=== PATIENT | female | born 1930 | race Caucasian/White ===

== ENCOUNTER 2019-07-21 12:14 | Emergency (ER) | payer MEDICARE, BC ==
[2019-07-21 12:56] LABS: ABSOLUTE BASOPHILS # (AUTO) 0.1 10^3/uL (0.0-0.2); ABSOLUTE EOSINOPHILS # (AUTO) 0.1 10^3/uL (0.0-0.6); ABSOLUTE LYMPHOCYTES (AUTO) 1.7 10^3/uL (0.5-4.7); ABSOLUTE MONOCYTES (AUTO) 0.7 10^3/uL (0.1-1.4); ABSOLUTE NEUT (AUTO) 6.3 10^3/uL (1.7-8.2); BASOPHILS % (AUTO) 0.7 % (0-2); EOSINOPHILS % (AUTO) 0.8 % (0-6); HEMATOCRIT 43.4 % (36.0-47.0); HEMOGLOBIN 14.8 g/dL (12.0-15.5); MEAN CORPUSCULAR HGB CONC 34.2 g/dL (32.0-36.0); MEAN CORPUSCULAR VOLUME 88 fl (80-97); MONOCYTES % (AUTO) 7.7 % (3-13); PLATELET COUNT 224 10^3/uL (150-450); RED BLOOD COUNT 4.94 10^6/uL (3.72-5.28); RED CELL DISTRIBUTION WIDTH 13.8 % (11.5-14.0); SEGMENTED NEUTROPHILS % (AUTO) 71.8 % (42-78); TOTAL CELLS COUNTED % (AUTO) 100 %; WHITE BLOOD COUNT 8.7 10^3/uL (4.0-10.5)
[2019-07-21 13:21] LABS: CREATINE KINASE MB 0.76 ng/mL (<4.55)
[2019-07-21 13:23] LABS: TROPONIN I < 0.012 ng/mL
[2019-07-21 13:35] LABS: ALBUMIN 4.2 g/dL (3.5-5.0); ALKALINE PHOSPHATASE 57 U/L (38-126); ANION GAP 15 (5-19); ASPARTATE AMINO TRANSFERASE 35 U/L (14-36); BILIRUBIN,DIRECT 0.2 mg/dL (0.0-0.4); BILIRUBIN,TOTAL 1.7 mg/dL (0.2-1.3); BLOOD UREA NITROGEN 15 mg/dL (7-20); CALCIUM 10.1 mg/dL (8.4-10.2); CARBON DIOXIDE 23 mmol/L (22-30); CHLORIDE 104 mmol/L (98-107); CREATINE KINASE 77 U/L (30-135); GLUCOSE 133 mg/dL (75-110); POTASSIUM 4.2 mmol/L (3.6-5.0)
[2019-07-21 13:51] LABS: APPEARANCE,URINE SLIGHTLY-CLOUDY; BILIRUBIN,URINE NEGATIVE (NEGATIVE); CALCIUM OXALATE CRYSTALS,URINE RARE /HPF; GLUCOSE, URINE 50 mg/dL (NEGATIVE); KETONES,URINE TRACE mg/dL (NEGATIVE); LEUKOCYTE ESTERASE,URINE NEGATIVE (NEGATIVE); NITRITE,URINE NEGATIVE (NEGATIVE); PROTEIN,URINE 100 mg/dL (NEGATIVE); URINE SPECIFIC GRAVITY 1.025; UROBILINOGEN,URINE NEGATIVE mg/dL (<2.0)
[2019-07-21 13:52] LABS: COLOR,URINE DARK YELLOW
--- NOTE | 2019-07-21 15:01 | RADIOLOGY REPORT (SQ) ---
EXAM DESCRIPTION: CT HEAD WITHOUT COMPLETED DATE/TIME: 07/21/2019 1:37 pm REASON FOR STUDY: altered mental status COMPARISON: None. TECHNIQUE: Axial images acquired through the brain without intravenous contrast. Images reviewed wi th bone, brain and subdural windows. Additional sagittal and coronal reconstructions were generated. Images stored on PACS. All CT scanners at this facility use dose modulation, iterative reconstruction, and/or weight based d osing when appropriate to reduce radiation dose to as low as reasonably achievable (ALARA). [facility]: Dose Right [facility]: CareDose [facility]: Dose Right [facility]: Teradose 4D [facility]: Handup RADIATION DOSE: Total exam DLP: 1017.17 mGy LIMITATIONS: None. FINDINGS: VENTRICLES: Prominent, commensurate with the sulci. The cisterns are patent. CEREBRUM: Chronic small vessel ischemic changes. No masses. No hemorrhage. No midline shift. No evidence for acute infarction. CEREBELLUM: No masses. No hemorrhage. No alteration of density. No evidence for acute infarction. EXTRAAXIAL SPACES: Age related involutional change. No fluid collections. No masses. ORBITS AND GLOBE: No intra- or extraconal masses. Normal contour of globe without masses. CALVARIUM: No fracture. PARANASAL SINUSES: No fluid or mucosal thickening. SOFT TISSUES: No mass or hematoma. 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 Small non-enlarged intrapar otid gland lymph node is also noted. Considerations for these findings include benign masses includi ng mixed tumor, with the possibility of underlying malignancy not entirely excluded. IMPRESSION: 1. No acute intracranial abnormality. 2. Atrophy and chronic small vessel ischemic changes. 3. 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 Small non-enlarged intraparotid gland lymph node. Considerations for these findings include benign masses including mixed tumor, wi th the possibility of underlying malignancy not entirely excluded. EVIDENCE OF ACUTE STROKE: NO. COMMENT: 1. The results of this examination were discussed with emergency department provider on at 16:47 hours. Quality ID # 436: Final reports with documentation of one or more dose reduction techniques (e.g., Au tomated exposure control, adjustment of the mA and/or kV according to patient size, use of iterative reconstruction technique) TECHNICAL DOCUMENTATION: JOB ID: [id number] [employer]- All Rights Reserved Reading location - IP/workstation name: [email or web address]
--- NOTE | 2019-07-21 15:30 | ER Document Report ---
ED Dizziness/Weakness - General Chief Complaint: Syncope Stated Complaint: SYNCOPE Time Seen by Provider: 07/21/19 12:44 Mode of Arrival: Medic Information source: Patient, Relative TRAVEL OUTSIDE OF THE U[place]. IN LAST 30 DAYS: No - HPI Notes: Patient is brought in by paramedics after a syncopal episode at home. Patient has dementia and is not a good historian. Patient's son is at bedside and gives the history. He states that the patient was sitting next to him about an hour and a half after breakfast on the porch. He states he looked over and the patient's eyes were open but she was not responding. He states this lasted about 5 to 10 minutes. He states since then the patient has been essentially back to baseline. He states he did notice that the patient was somewhat sweaty right after the episode. There is been no recent illnesses. No recent nausea vomiting or diarrhea that is known. No recent known fevers cough or congestion. No known recent trauma. Patient does not take any type of blood pressure medication. Patient has no significant history of previous syncopal episodes. Symptoms were constant for approximately 10 minutes. Nothing made it better or worse. There is no no radiation symptoms. Symptoms consisted of being unresponsive and staring. Patient is unable to characterize the symptoms. - Related Data Allergies/Adverse Reactions: No Known Allergies Allergy (Verified 07/21/19 13:23) Past Medical History - General Information source: Relative - Social History Smoking Status: Never Smoker Chew tobacco use (# tins/day): No Frequency of alcohol use: None Drug Abuse: None Lives with: Family Family History: Reviewed & Not Pertinent Patient has suicidal ideation: No Patient has homicidal ideation: No - Past Medical History Cardiac Medical History: Denies: Hx Heart Attack, Hx Hypertension Pulmonary Medical History: Denies: Hx Asthma Neurological Medical History: Denies: Hx Cerebrovascular Accident, Hx Seizures GI Medical History: Denies: Hx Hepatitis, Hx Hiatal Hernia, Hx Ulcer Infectious Medical History: Denies: Hx Hepatitis Past Surgical History: 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 Denies: Hx Hysterectomy, Hx Open Heart Surgery, Hx Pacemaker Review of Systems - Review of Systems -: Yes ROS unobtainable due to patient's medical condition - Review of symptoms are not obtainable due to patient's dementia Physical Exam - Vital signs Vitals: Temp Pulse Resp BP Pulse Ox 97.7 F 78 15 113/70 94 07/21/19 12:14 07/21/19 12:14 07/21/19 12:14 07/21/19 12:14 07/21/19 12:14 Interpretation: Normal - General General appearance: Appears well, Alert - HEENT Head: Normocephalic, Atraumatic Eyes: Normal Pupils: PERRL - Respiratory Respiratory status: No respiratory distress Chest status: Nontender Breath sounds: Normal Chest palpation: Normal - Cardiovascular Rhythm: Regular Heart sounds: Normal auscultation Murmur: No - Abdominal Inspection: Normal Distension: No distension Bowel sounds: Normal Tenderness: Nontender Organomegaly: No organomegaly - Back Back: Normal, Nontender - Extremities General upper extremity: Normal inspection, Nontender, Normal color, Normal ROM, Normal temperature General lower extremity: Normal inspection, Nontender, Normal color, Normal ROM, Normal temperature, Normal weight bearing. 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 No: Pronator drift Sensory: Normal - Psychological Associated symptoms: Normal affect, Normal mood - Skin Skin Temperature: Warm Skin Moisture: Dry Skin Color: Normal Course - Re-evaluation Re-evalutation: 07/21/19 15:27 Patient presents with a syncopal episode this morning. Work appears unremarkable. She did not have a urinary tract infection. She has no evidence of arrhythmia. Orthostatic vital signs are normal. Head CT is unremarkable for anything which would cause syncope. 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 I did inform family that if never wanted evaluated further they should follow-up with ENT. Patient is currently smiling and pleasant has unremarkable exam with stable vital signs. I do not believe the patient would benefit from inpatient admission and have referred the family for further outpatient work-up. - Vital Signs Vital signs: Temp Pulse Resp BP Pulse Ox 97.7 F 81 14 118/67 95 07/21/19 12:14 07/21/19 15:13 07/21/19 14:00 07/21/19 15:13 07/21/19 14:00 - Laboratory Result Diagrams: 07/21/19 12:33 07/21/19 12:33 Laboratory results interpreted by me: 07/21/19 07/21/19 12:33 13:10 Glucose 133 H Total Bilirubin 1.7 H Urine Protein 100 H Urine Glucose (UA) 50 H Urine Ketones TRACE H Urine Blood LARGE H - Diagnostic Test Radiology reviewed: Image reviewed, Reports reviewed - EKG Interpretation by Me EKG shows normal: Sinus rhythm Rate: Normal - 79 Rhythm: NSR Reddick/QRS: LAHB/LAFB Discharge - Discharge Clinical Impression: Syncope Qualifiers: Syncope type: unspecified Qualified Code(s): R55 - Syncope and collapse Condition: Stable Disposition: HOME, SELF-CARE Instructions: Syncopal Episode ([facility]) Additional Instructions: Please call your family doctor as soon as possible to arrange follow-up
[2019-07-21 15:42] VITALS: BP 127/113
--- NOTE | 2019-07-23 00:04 | EKG REPORT ---
SEVERITY:- ABNORMAL ECG - SINUS RHYTHM LEFT ANTERIOR FASCICULAR BLOCK LEFT VENTRICULAR HYPERTROPHY ANTERIOR Q WAVES, POSSIBLY DUE TO LVH : Confirmed by: Josesito Tuttle 23-Jul-2019 00:03:11
== END 2019-07-21 16:00 | disposition home or self-care (01) ==
LOC: ER 12:14
DX: R55 Syncope and collapse (principal); F03.90 Unspecified dementia, unspecified severity, without behavioral disturbance, psychotic disturbance, mood disturbance, and anxiety
CPT/HCPCS: 36415; 70450; 80053; 81001; 82550; 82553; 84484; 85025; 93005; 93010; 99284

== ENCOUNTER → 2019-07-27 | Outpatient (CLI) | payer MEDICARE, BC ==
--- NOTE | 2019-07-27 14:19 | RADIOLOGY REPORT (SQ) ---
EXAM DESCRIPTION: CAROTID DOPPLER COMPLETED DATE/TIME: 07/27/2019 1:50 pm REASON FOR STUDY: SYNCOPE R55 SYNCOPE AND COLLAPSE COMPARISON: None. TECHNIQUE: Grayscale ultrasound, Doppler velocity and spectra, and color Doppler images acquired of the extra-cranial carotid and vertebral arteries. Images stored on PACS. LIMITATIONS: None. FINDINGS: RIGHT CAROTID CCA Velocities: Normal waveform and velocities without high-grade stenosis. Grayscale evaluation wit hout significant luminal narrowing. ICA Velocities Peak systolic 70 cm/s. End diastolic 20 cm/s. Proximal ICA/CCA peak systolic ratio 1.3. Normal spectral waveform. Grayscale evaluation with scattered heterogeneous plaque and less than 50% luminal narrowing. LEFT CAROTID CCA Velocities: Normal waveform and velocity without high-grade stenosis. Grayscale evaluation witho ut significant luminal narrowing. ICA Velocities Peak systolic 46 cm/s. End diastolic 12 cm/s. Proximal ICA/CCA peak systolic ratio 1.0. Normal waveform and velocity without high-grade stenosis. Grayscale evaluation with minimal eccentri c plaque causing less than 50% luminal narrowing. VERTEBRAL ARTERIES: Antegrade flow. Normal waveforms. SUBCLAVIAN ARTERIES: Not imaged. OTHER: No other significant finding. IMPRESSION: 1. No hemodynamically significant ICA stenosis. COMMENT: Quality ID #195: Velocity criteria are extrapolated from the diameter data as defined by t he Society of Radiologists in Ultrasound Consensus Conference. Radiology 2003: 229; 340-346. TECHNICAL DOCUMENTATION: JOB ID: [id number] [employer]- All Rights Reserved Reading location - IP/workstation name: [email or web address]
== END ==
LOC: SP 12:48
PROVIDERS: ATTEND Family Medicine Geriatric Medicine
DX: R55 Syncope and collapse (principal)
CPT/HCPCS: 93880

== ENCOUNTER 2019-09-26 18:24 | Emergency (ER) | payer MEDICARE, BC ==
[2019-09-26] MEDS ORDERED: NORMAL SALINE 1000 ML 1,000 ML IV ONE (19:03)
[2019-09-26] MEDS ORDERED: ONDANSETRON HCL INJ/PF 4 MG/2 ML SDV IV ONE (19:03)
--- NOTE | 2019-09-26 19:05 | ER Document Report ---
ED Medical Screen (RME) - General Chief Complaint: Abdominal Pain Stated Complaint: FEVER/ABDOMINAL PAIN/NAUSEA Time Seen by Provider: 09/26/19 18:59 Primary Care Provider: RENATO LANDIS MD [Primary Care Provider] - Follow up as needed TRAVEL OUTSIDE OF THE U.[place]. IN LAST 30 DAYS: No - HPI Notes: 09/26/19 19:04 Patient is an 89-year-old female with a history of diabetes and dementia who presents with son complaining of lower abdominal pain that began a couple hours ago. Son states that she did feel warm to the touch. She has been dry heaving. Son states that she will have incontinence of stool which is normal for her. No chest pain or shortness of breath. I have treated and performed a rapid initial assessment of this patient. A comprehensive ED assessment and evaluation of the patient, analysis of test results and completion of medical decision making process will be conducted by additional ED providers. PHYSICAL EXAMINATION: GENERAL: Well-appearing, well-nourished and in no acute distress. Abdomen: Limited exam in triage, abdomen is generally soft with mild tenderness to the lower abdomen. Lungs: Grossly CTAB. 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 Denies: Hx Hysterectomy, Hx Open Heart Surgery, Hx Pacemaker Physical Exam - Vital signs Vitals: Temp Pulse Resp BP Pulse Ox 97.8 F 76 20 172/80 H 94 09/26/19 18:41 09/26/19 18:41 09/26/19 18:41 09/26/19 18:41 09/26/19 18:41 Course - Vital Signs Vital signs: Temp Pulse Resp BP Pulse Ox 97.8 F 76 20 172/80 H 94 09/26/19 18:41 09/26/19 18:41 09/26/19 18:41 09/26/19 18:41 09/26/19 18:41 Doctor's Discharge - Discharge Referrals: RENATO LANDIS MD [Primary Care Provider] - Follow up as needed
[2019-09-26 19:47] LABS: ABSOLUTE LYMPHOCYTES (AUTO) 1.1 10^3/uL (0.5-4.7); MEAN CORPUSCULAR VOLUME 87 fl (80-97); TOTAL CELLS COUNTED % (AUTO) 100 %
[2019-09-26 20:04] LABS: ABSOLUTE MONOCYTES (AUTO) 0.6 10^3/uL (0.1-1.4); ABSOLUTE NEUT (AUTO) 9.4 10^3/uL (1.7-8.2); BASOPHILS % (AUTO) 0.3 % (0-2); EOSINOPHILS % (AUTO) 0.4 % (0-6); HEMATOCRIT 44.2 % (36.0-47.0); HEMOGLOBIN 14.9 g/dL (12.0-15.5); LYMPHOCYTES % (AUTO) 10.1 % (13-45); MEAN CORPUSCULAR HEMOGLOBIN 29.4 pg (27.0-33.4); MEAN CORPUSCULAR HGB CONC 33.6 g/dL (32.0-36.0); MONOCYTES % (AUTO) 5.6 % (3-13); PLATELET COUNT 217 10^3/uL (150-450); RED BLOOD COUNT 5.06 10^6/uL (3.72-5.28); RED CELL DISTRIBUTION WIDTH 13.4 % (11.5-14.0); SEGMENTED NEUTROPHILS % (AUTO) 83.6 % (42-78); WHITE BLOOD COUNT 11.2 10^3/uL (4.0-10.5)
[2019-09-26 20:08] LABS: ALBUMIN 4.4 g/dL (3.5-5.0); ALKALINE PHOSPHATASE 71 U/L (38-126); ANION GAP 11 (5-19); ASPARTATE AMINO TRANSFERASE 28 U/L (14-36); BILIRUBIN,DIRECT 0.1 mg/dL (0.0-0.4); BILIRUBIN,TOTAL 1.5 mg/dL (0.2-1.3); BLOOD UREA NITROGEN 15 mg/dL (7-20); CALCIUM 9.9 mg/dL (8.4-10.2); CARBON DIOXIDE 27 mmol/L (22-30); CHLORIDE 99 mmol/L (98-107); GLUCOSE 186 mg/dL (75-110); TOTAL PROTEIN 7.4 g/dL (6.3-8.2)
--- NOTE | 2019-09-26 20:33 | ER Document Report ---
ED GI/ - General Chief Complaint: Abdominal Pain Stated Complaint: FEVER/ABDOMINAL PAIN/NAUSEA Time Seen by Provider: 09/26/19 18:59 Primary Care Provider: RENATO LANDIS MD [Primary Care Provider] - Follow up as needed TINO COOK MD [NO LOCAL MD] - Follow up as needed Mode of Arrival: Wheelchair Information source: Patient, Relative Notes: 89-year-old female presented to ED for complaint of lower abdominal pain. Son states at home she was complaining of right lower quadrant but now she is complained of left lower quadrant pain. She does have tenderness to palpation to the left lower quadrant. Son states that she was having nausea vomiting and dry heaves at home. He states that she is also very incontinent and has a history of dementia and diabetes. She does not know her history and is not really able to answer any questions appropriately. Patient is alert for and as oriented as she normally is according to her son. TRAVEL OUTSIDE OF THE [place] IN LAST 30 DAYS: No - HPI Patient complains to provider of: Abdominal pain, Vomiting Onset: This evening Timing/Duration: Intermittent Quality of pain: Cramping, Sharp Severity at maximum: Moderate Severity in ED: Moderate Pain Level: 3 Location: LLQ Vaginal bleeding (Compared to normal period): None Menstrual period history: Post-menopausal Associated symptoms: Nausea, Vomiting Exacerbated by: Movement Relieved by: Denies Similar symptoms previously: No Recently seen / treated by doctor: No - Related Data Allergies/Adverse Reactions: No Known Allergies Allergy (Verified 09/26/19 18:59) Home Medications: metformen, Past Medical History - General Information source: Patient, Relative - Social History Smoking Status: Never Smoker Frequency of alcohol use: None Drug Abuse: None Lives with: Alone - Family is always present Family History: Reviewed & Not Pertinent Patient has suicidal ideation: No Patient has homicidal ideation: No - Past Medical History Cardiac Medical History: Reports: None Pulmonary Medical History: Reports: None EENT Medical History: Reports: None Neurological Medical History: Reports: None Endocrine Medical History: Reports: Hx Diabetes Mellitus Type 2 Renal/ Medical History: Reports: None Malignancy Medical History: Reports: None GI Medical History: Reports: None Musculoskeletal Medical History: Reports None Skin Medical History: Reports None Psychiatric Medical History: Reports: None Traumatic Medical History: Reports: None Infectious Medical History: Reports: None Past Surgical History: 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 - Immunizations Immunizations up to date: Yes Review of Systems - Review of Systems Constitutional: No symptoms reported EENT: No symptoms reported Cardiovascular: No symptoms reported Respiratory: No symptoms reported Gastrointestinal: Abdominal pain, Nausea, Vomiting Genitourinary: No symptoms reported Female Genitourinary: No symptoms reported Musculoskeletal: No symptoms reported Skin: No symptoms reported Hematologic/Lymphatic: No symptoms reported Neurological/Psychological: No symptoms reported -: Yes All other systems reviewed and negative Physical Exam - Vital signs Vitals: Temp Pulse Resp BP Pulse Ox 97.8 F 76 20 172/80 H 94 09/26/19 18:41 09/26/19 18:41 09/26/19 18:41 09/26/19 18:41 09/26/19 18:41 Interpretation: Normal - General General appearance: Appears well, Alert - HEENT Head: Normocephalic, Atraumatic Eyes: Normal Pupils: PERRL - Respiratory Respiratory status: No respiratory distress Chest status: Nontender Breath sounds: Normal Chest palpation: Normal - Cardiovascular Rhythm: Regular Heart sounds: Normal auscultation Murmur: No - Abdominal Inspection: Normal Distension: No distension Bowel sounds: Normal Tenderness: Tender - Left lower quadrant Organomegaly: No organomegaly - Back Back: Normal, Nontender - Extremities General upper extremity: Normal inspection, Nontender, Normal color, Normal ROM, Normal temperature General lower extremity: Normal inspection, Nontender, Normal color, Normal ROM, Normal temperature, Normal weight bearing. No: Shane's sign - Neurological Neuro grossly intact: Yes Cognition: Normal Orientation: AAOx4 Bhumika Coma Scale Eye Opening: Spontaneous [place] Coma Scale Verbal: Oriented [place] Coma Scale Motor: Obeys Commands Bhumika Coma Scale Total: 15 Speech: Normal Motor strength normal: LUE, RUE, LLE, RLE Sensory: Normal - Psychological Associated symptoms: Normal affect, Normal mood - Skin Skin Temperature: Warm Skin Moisture: Dry Skin Color: Normal Course - Re-evaluation Re-evalutation: 09/26/19 23:[address] results discussed with son. Patient is dementia. Patient was treated with Flomax and given a prescription for Flomax and sent home with a dispense pack of Zofran and [place]. Son stated that 1 of the siblings stays with mother at all times due to her dementia. He states they will take her to see a urologist at either [place] or [place] probably [place] tomorrow due to her large kidney stone. - Vital Signs Vital signs: Temp Pulse Resp BP Pulse Ox 98.9 F 78 23 H 182/99 H 96 09/26/19 22:51 09/26/19 22:51 09/26/19 22:51 09/26/19 22:51 09/26/19 22:51 - Laboratory Result Diagrams: 09/26/19 19:30 09/26/19 19:30 Laboratory results interpreted by me: 09/26/19 09/26/19 09/26/19 19:30 19:30 21:03 WBC 11.2 H Lymph % (Auto) 10.1 L Absolute Neuts (auto) 9.4 H Seg Neutrophils % 83.6 H Glucose 186 H Total Bilirubin 1.5 H Urine Protein 100 H Urine Glucose (UA) 150 H Urine Ketones 20 H Urine Blood LARGE H Ur Leukocyte Esterase TRACE H - Diagnostic Test Radiology reviewed: Image reviewed, Reports reviewed Discharge - Discharge Clinical Impression: Left ureteral calculus, Hydronephrosis, left Condition: Stable Disposition: HOME, SELF-CARE Additional Instructions: KIDNEY STONE: You are passing or have passed a kidney stone. These stones are usually due to increased calcium or uric acid concentrations in your urine. Stones within the kidney itself are not painful. The pain occurs as the stone leaves the kidney to pass down the long tube, called the ureter, leading to the bl adder. If the stone is small, it will usually pass by itself. Most patients can pass the stone at home. You will usually receive medications for pain, nausea or vomiting, and sometimes a medication to assist in passing the kidney stone. However, if the pain is very severe or if vomiting prevents you from taking oral pain medications, you may need to return for further treatment. Drink three or four quarts of fluids per day. You will be given pain medication (if needed) and urine strainers. Strain all your urine to see if the stone passes. If your doctor has asked you to bring the stone in for analysis, return with the stone once it has passed. Return if pain or vomiting become severe, if you develop a high fever, if you are unable to pass your urine, or if other unusual symptoms occur. ANTINAUSEA MEDICATION: You have been given a medication to suppress nausea and vomiting. This type of medication can be given as a shot, pill, or suppository. It will usually last for many hours. Pills and shots usually last six to eight hours, suppositories last about 12 hours. For the typical illness, only one or two doses of the medication may be necessary. Mild lightheadedness may occur. This type of medicine can cause drowsiness. Do not drive or operate dangerous machinery while under its influence. Do not mix with alcohol. See your doctor at once if you have muscle spasms or tightness, or uncontrollable motions (particularly of the neck, mouth, or jaw). Persistent vomiting or severe lightheadedness should also be evaluated by the physician. ORAL NARCOTIC MEDICATION: You have been given a norco dispense pack for pain control. This medi cation is a narcotic. It's best taken with food, as nausea can result if taken on an empty stomach. Don't operate machinery or drive within six hours of taking this medication. Do not combine this medicine with alcohol, or with any medication which can cause sedation (such as cold tablets or sleeping pills) unless you get permission from the physician. Narcotics tend to cause constipation. If possible, drink plenty of fluids and eat a diet high in fiber and fruits. Please be aware that prescription narcotics also have the potential for abuse. People become addicted to these medications because of the general sense of wellbeing that they induce. This feeling along with a significant reduction in tension, anxiety, and aggression provides a stimulating seductive quality to these drugs. Once your pain is under control, we encourage you to discard your unused narcotics. FLOMAX (tamsulosin): Flomax is a medicine that shrinks the prostate gland. It helps relieve symptoms of benign prostatic hypertrophy, such as frequent urination, weak stream, and inadequate emptying. It has been shown to dilate the ureter (tube leading from the kidney to the bladder) and help in passing kidney stones Flomax usually causes no side effects. You may notice slight tiredness and dizziness for a few days. Some patients develop nasal congestion. Rarely, impotence can occur. If the symptoms are bothersome and don't improve with continued use, call your doctor. Contact your doctor or return if you have fainting spells, severe weakness or dizziness, shortness of breath, or rash. FOLLOW-UP CARE: If you have been referred to a physician for follow-up care, call the physicians office for an appointment as you were instructed or within the next two days. If you experience worsening or a significant change in your symptoms, notify the physician immediately or return to the Emergency Department at any time for re-evaluation. Prescriptions: Tamsulosin HCl [Flomax 0.4 mg Cap.sr] 0.4 mg PO DAILY #7 cap.sr.24h Forms: Elevated Blood Pressure Referrals: RENATO LANDIS MD [Primary Care Provider] - Follow up as needed TINO COOK MD [NO LOCAL MD] - Follow up as needed
[2019-09-26 21:25] LABS: APPEARANCE,URINE SLIGHTLY-CLOUDY; BILIRUBIN,URINE NEGATIVE (NEGATIVE); COLOR,URINE YELLOW; GLUCOSE, URINE 150 mg/dL (NEGATIVE); KETONES,URINE 20 mg/dL (NEGATIVE); LEUKOCYTE ESTERASE,URINE TRACE (NEGATIVE); NITRITE,URINE NEGATIVE (NEGATIVE); PROTEIN,URINE 100 mg/dL (NEGATIVE); URINE SPECIFIC GRAVITY 1.013; UROBILINOGEN,URINE NEGATIVE mg/dL (<2.0)
--- NOTE | 2019-09-26 22:07 | RADIOLOGY REPORT (SQ) ---
EXAM DESCRIPTION: CT ABDOMEN PELVIS WITH IV CONTRAST COMPLETED DATE/TME: 09/26/2019 20:27 CLINICAL HISTORY: 89 years, Female, left lower quad abdominal pain COMPARISON: None. TECHNIQUE: 383 Images stored on PACS. All CT scanners at this facility use dose modulation, iterative reconstruction, and/or weight based dosing when appropriate to reduce radiation dose to as low as reasonably achievable (ALARA). [facility]: Dose Right [facility]: CareDose [facility]: Dose Right [facility]: Teradose 4D [facility]: Smart Fonality LIMITATIONS: None. FINDINGS: Limited evaluation of the lung bases is unremarkable. Small hiatal hernia. Osseous structures are grossly intact. Calcified uterine fibroids. Probable fatty infiltrative change to the liver. 12 mm hypodensity near the dome of the liver likely reflect small hemangioma. Probable cyst in the superior aspect of the spleen. The adrenal glands, pancreas, are unremarkable. Simple appearing right renal cyst. Moderate left hydroureteronephrosis with left perinephric inflammatory fat stranding and edema secondary to a 1.3 cm proximal left ureteral calculus. No gross evidence for bowel obstruction. No free air or free fluid. Occasional sigmoid diverticuli without CT evidence for diverticulitis. Appendix not well seen. No pericecal inflammation. IMPRESSION: Moderate left hydroureteronephrosis with surrounding inflammatory changes secondary to a 1.3 cm proximal left ureteral calculus. Other incidental findings as above TECHNICAL DOCUMENTATION: Quality ID # 436: Final reports with documentation of one or more dose reduction techniques (e.g., Automated exposure control, adjustment of the mA and/or kV according to patient size, use of iterative reconstruction technique) copyright 2011 [employer]- All Rights Reserved
[2019-09-26] MEDS ORDERED: HYDROCODONE/ACETAMINOPHEN 5-325 MG (6 TAB/ER DISP) PO PRN (22:33)
[2019-09-26] MEDS ORDERED: ONDANSETRON ODT 4 MG TAB (6 TAB/ER DISP) PO PRN (22:34)
[2019-09-26] MEDS ORDERED: TAMSULOSIN HCL 0.4 MG CAP.SR.24H PO ONE (22:35)
[2019-09-26 22:52] VITALS: BP 182/99
== END 2019-09-26 22:52 | disposition home or self-care (01) ==
LOC: ER 18:24
DX: N13.2 Hydronephrosis with renal and ureteral calculous obstruction (principal); R50.9 Fever, unspecified; R10.31 Right lower quadrant pain; R10.32 Left lower quadrant pain; R11.2 Nausea with vomiting, unspecified; F03.90 Unspecified dementia, unspecified severity, without behavioral disturbance, psychotic disturbance, mood disturbance, and anxiety; E11.9 Type 2 diabetes mellitus without complications
CPT/HCPCS: 99284; 96361; 96374; 36415; 87086; 83690; 85025; 80053; 81001; 74177; A9270 ×3; J2405; J7030

== ENCOUNTER 2020-10-04 10:24 | Emergency (ER) | payer MEDICARE, BC ==
[2020-10-04 11:46] LABS: ABSOLUTE EOSINOPHILS # (AUTO) 0.1 10^3/uL (0.0-0.6); ABSOLUTE LYMPHOCYTES (AUTO) 1.3 10^3/uL (0.5-4.7); ABSOLUTE MONOCYTES (AUTO) 0.7 10^3/uL (0.1-1.4); ABSOLUTE NEUT (AUTO) 6.3 10^3/uL (1.7-8.2); BASOPHILS % (AUTO) 0.4 % (0-2); HEMATOCRIT 46.9 % (36.0-47.0); HEMOGLOBIN 15.7 g/dL (12.0-15.5); LYMPHOCYTES % (AUTO) 15.7 % (13-45); MEAN CORPUSCULAR HEMOGLOBIN 29.1 pg (27.0-33.4); MEAN CORPUSCULAR HGB CONC 33.5 g/dL (32.0-36.0); MEAN CORPUSCULAR VOLUME 87 fl (80-97); MONOCYTES % (AUTO) 7.9 % (3-13); PLATELET COUNT 161 10^3/uL (150-450); RED BLOOD COUNT 5.39 10^6/uL (3.72-5.28); RED CELL DISTRIBUTION WIDTH 13.6 % (11.5-14.0); TOTAL CELLS COUNTED % (AUTO) 100 %; WHITE BLOOD COUNT 8.4 10^3/uL (4.0-10.5)
[2020-10-04 12:03] LABS: ALBUMIN 4.4 g/dL (3.5-5.0); ALKALINE PHOSPHATASE 85 U/L (38-126); ANION GAP 7 (5-19); ASPARTATE AMINO TRANSFERASE 31 U/L (14-36); BILIRUBIN,DIRECT 0.1 mg/dL (0.0-0.4); BILIRUBIN,TOTAL 2.7 mg/dL (0.2-1.3); BLOOD UREA NITROGEN 11 mg/dL (7-20); CARBON DIOXIDE 29 mmol/L (22-30); CHLORIDE 102 mmol/L (98-107); CREATINE KINASE 145 U/L (30-135); GLUCOSE 143 mg/dL (75-110); POTASSIUM 4.5 mmol/L (3.6-5.0); TOTAL PROTEIN 7.4 g/dL (6.3-8.2)
--- NOTE | 2020-10-04 12:09 | RADIOLOGY REPORT (SQ) ---
EXAM DESCRIPTION: CT HEAD WITHOUT IMAGES COMPLETED DATE/TIME: 10/04/2020 11:59 am REASON FOR STUDY: ams COMPARISON: 07/21/2019 TECHNIQUE: Axial images acquired through the brain without intravenous contrast. Images reviewed wi th bone, brain and subdural windows. Additional sagittal and coronal reconstructions were generated. Images stored on PACS. All CT scanners at this facility use dose modulation, iterative reconstruction, and/or weight based d osing when appropriate to reduce radiation dose to as low as reasonably achievable (ALARA). [facility]: Dose Right [facility]: CareDose [facility]: Dose Right [facility]: Teradose 4D [facility]: Smart Traity RADIATION DOSE: CT Rad equipment meets quality standard of care and radiation dose reduction techniq ues were employed. CTDIvol: 53.2 mGy. DLP: 991 mGy-cm.mGy. LIMITATIONS: None. FINDINGS: VENTRICLES: Prominent. CEREBRUM: No masses. No hemorrhage. No midline shift. Areas of low density in the white matter mos t likely due to chronic micro-vascular ischemic change. No evidence for acute infarction. CEREBELLUM: No masses. No hemorrhage. No alteration of density. No evidence for acute infarction. EXTRAAXIAL SPACES: Age-related involutional change. No fluid collections. No masses. ORBITS AND GLOBE: No intra- or extraconal masses. Normal contour of globe without masses. CALVARIUM: No fracture. PARANASAL SINUSES: No fluid or mucosal thickening. SOFT TISSUES: No mass or hematoma. OTHER: No other significant finding. IMPRESSION: CHRONIC CHANGES OF ATROPHY AND MICROVASCULAR ISCHEMIA. NO ACUTE PROCESS. EVIDENCE OF ACUTE STROKE: NO. TECHNICAL DOCUMENTATION: JOB ID: [id number] Quality ID # [id number]: Final reports with documentation of one or more dose reduction techniques (e.g., Au tomated exposure control, adjustment of the mA and/or kV according to patient size, use of iterative reconstruction technique) 2010 [employer]: [employer]- All Rights Reserved Reading location - IP/workstation name: [email or web address]
--- NOTE | 2020-10-04 12:17 | RADIOLOGY REPORT (SQ) ---
EXAM DESCRIPTION: CT ABD/PELVIS NO ORAL OR IV IMAGES COMPLETED DATE/TIME: 10/04/2020 11:59 am REASON FOR STUDY: pain COMPARISON: 09/26/2019 TECHNIQUE: CT scan of the abdomen and pelvis performed without intravenous or oral contrast. Images reviewed with lung, soft tissue, and bone windows. Reconstructed coronal and sagittal MPR images revi ewed. All images stored on PACS. All CT scanners at this facility use dose modulation, iterative reconstruction, and/or weight based d osing when appropriate to reduce radiation dose to as low as reasonably achievable (ALARA). [facility]: Dose Right [facility]: CareDose [facility]: Dose Right [facility]: Teradose 4D [facility]: Smart eBrevia RADIATION DOSE: CT Rad equipment meets quality standard of care and radiation dose reduction techniq ues were employed. CTDIvol: 9.8 mGy. DLP: 544 mGy-cm.mGy. LIMITATIONS: None. FINDINGS: LOWER CHEST: Dependent basilar atelectasis. Small hiatal hernia. NON-CONTRASTED LIVER, SPLEEN, ADRENALS: Evaluation limited by lack of IV contrast. No identified sign ificant masses. PANCREAS: No masses. No peripancreatic inflammatory changes. GALLBLADDER: Surgically absent. RIGHT KIDNEY AND URETER: Small cortical cysts. No suspicious findings. 4.7 mm stone in the right r enal pelvis. This axillae lies in the main lower pole infundibulum. No hydronephrosis. No uretera l dilatation. This stone is new from prior study. LEFT KIDNEY AND URETER: No suspicious masses. Assessment limited by lack of IV contrast. No signifi cant calcifications. No hydronephrosis or hydroureter. AORTA AND RETROPERITONEUM: No aneurysm. No retroperitoneal masses or adenopathy. BOWEL AND PERITONEAL CAVITY: No obvious masses or inflammatory changes. No free fluid. APPENDIX: Normal. PELVIS, BLADDER, AND ABDOMINAL WALL:Bladder distention. No bladder stones. BONES: Degenerative changes in the lumbar spine with grade 1 anterolisthesis of L4 on L5. Disc space narrowing at L5-S1. OTHER: No other significant finding. IMPRESSION: 1. 4.7 mm stone in the main infundibulum of the lower pole. This is new from prior misael dy This is nonobstructing at this time. 2. Bladder distention. 3. Dependent basilar atelectasis and pleural thickening. Right greater than left. Small hiatal her gloria. COMMENT: Quality ID # [id number]: Final reports with documentation of one or more dose reduction techniques (e.g., Automated exposure control, adjustment of the mA and/or kV according to patient size, use of iterative reconstruction technique) TECHNICAL DOCUMENTATION: JOB ID: [id number] 2010 [employer]- All Rights Reserved Reading location - IP/workstation name: [email or web address]
--- NOTE | 2020-10-04 12:43 | EKG REPORT ---
SEVERITY:- ABNORMAL ECG - SINUS RHYTHM LEFT ANTERIOR FASCICULAR BLOCK PROBABLE LVH WITH SECONDARY REPOL ABNRM CONSIDER OLD ANTEROSEPTAL AR. : Confirmed by: Eliseo Lucas MD 04-Oct-2020 12:43:00
[2020-10-04 12:56] LABS: APPEARANCE,URINE CLEAR; BILIRUBIN,URINE NEGATIVE (NEGATIVE); COLOR,URINE YELLOW; GLUCOSE, URINE NEGATIVE (NEGATIVE); KETONES,URINE NEGATIVE (NEGATIVE); LEUKOCYTE ESTERASE,URINE TRACE (NEGATIVE); NITRITE,URINE NEGATIVE (NEGATIVE); PROTEIN,URINE NEGATIVE (NEGATIVE); URINE SPECIFIC GRAVITY 1.013; UROBILINOGEN,URINE NEGATIVE mg/dL (<2.0)
--- NOTE | 2020-10-04 13:30 | ER Document Report ---
ED Dizziness/Weakness - General Chief Complaint: Altered Mental Status Stated Complaint: GENERALIZED WEAKNESS Time Seen by Provider: 10/04/20 10:47 Primary Care Provider: JOHNATHAN LEDESMA NP [Primary Care Provider] - Follow up as needed Information source: Relative - Daughter TRAVEL OUTSIDE OF THE [place] IN LAST 30 DAYS: No - HPI Notes: Patient has a history of dementia and is brought in by family for altered mental status. They state the patient has been having more trouble sleeping the last couple of days and has been hallucinating. No known history of fevers. No cough cold or congestion. No vomiting or diarrhea. No known falls. Patient did have a near syncopal episode yesterday after urinating as the daughter was trying to help her walk back to the kitchen. According to the daughter the patient right leg gave way but the patient did not fall to the floor and there did not appear to be loss of consciousness. - Related Data Allergies/Adverse Reactions: No Known Allergies Allergy (Verified 09/26/19 18:59) Home Medications: Aspirin, Januvia, Quetiapine, Simvastatin, Lorazepa Past Medical History - General Information source: Patient - Social History Smoking Status: Never Smoker Frequency of alcohol use: None Drug Abuse: None Family History: Reviewed & Not Pertinent - Past Medical History Cardiac Medical History: Reports: Hx Hypercholesterolemia Denies: Hx Heart Attack, Hx Hypertension Pulmonary Medical History: Denies: Hx Asthma Neurological Medical History: Denies: Hx Cerebrovascular Accident, Hx Seizures Endocrine Medical History: Reports: Hx Diabetes Mellitus Type 2 GI Medical History: Denies: Hx Hepatitis, Hx Hiatal Hernia, Hx Ulcer Musculoskeletal Medical History: Reports Hx Arthritis - OA Infectious Medical History: Denies: Hx Hepatitis Past Surgical History: 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 Denies: Hx Hysterectomy, Hx Open Heart Surgery, Hx Pacemaker - Immunizations Immunizations up to date: Yes Review of Systems - Review of Systems -: Yes ROS unobtainable due to patient's medical condition - Cannot obtain review of symptoms due to dementia Physical Exam - Vital signs Vitals: BP Pulse Ox 159/86 H 96 10/04/20 10:30 10/04/20 10:30 Interpretation: Hypertensive - General General appearance: Appears well, Alert In distress: None - HEENT Head: Normocephalic, Atraumatic Eyes: Normal Pupils: PERRL - Respiratory Respiratory status: No respiratory distress Chest status: Nontender Breath sounds: Normal Chest palpation: Normal - Cardiovascular Rhythm: Regular Heart sounds: Normal auscultation Murmur: No - Abdominal Inspection: Normal Distension: No distension Bowel sounds: Normal Tenderness: Nontender Organomegaly: No organomegaly - Back Back: Normal, Nontender - Extremities General upper extremity: Normal inspection, Nontender, Normal color, Normal temperature General lower extremity: Normal inspection, Nontender, Normal color, Normal temperature. No: Shane's sign - Neurological Cognition: Confused Orientation: Disoriented to place, Disoriented to time [place] Coma Scale Eye Opening: Spontaneous [place] Coma Scale Verbal: Confused [place] Coma Scale Motor: Obeys Commands [place] Coma Scale Total: 14 - Psychological Associated symptoms: Flat affect, Psychomotor depression - Skin Skin Temperature: Warm Skin Moisture: Dry Skin Color: Normal Course - Re-evaluation Re-evalutation: 10/04/20 13:31 Patient is brought in by family for altered mental status. This altered mental status consist of having trouble sleeping and hallucinating. Patient does have a history of dementia. I can find no cause for an acutely altered mental status. Head CT is unremarkable exam and vitals are essentially unremarkable and laboratory evaluation was also unremarkable. The agitation causing trouble with sleep as well as the hallucinations sound like a possible progression of the patient's dementia and I did discuss this with family. - Vital Signs Vital signs: Temp Pulse Resp BP Pulse Ox 19 115/54 L 98 10/04/20 12:01 10/04/20 12:01 10/04/20 12:01 - Laboratory Results Result Diagrams: 10/04/20 11:30 10/04/20 11:30 Laboratory Results Interpreted: 10/04/20 10/04/20 10/04/20 11:30 11:30 12:10 RBC 5.39 H Hgb 15.7 H Glucose 143 H Total Bilirubin 2.7 H Creatine Kinase 145 H Ur Leukocyte Esterase TRACE H Critical Laboratory Results Reviewed: No Critical Results - Radiology Results Critical Radiology Results Reviewed: No Critical Results Discharge - Discharge Clinical Impression: Dementia Qualifiers: Dementia type: Alzheimer's Alzheimer's disease onset: late-onset Dementia behavioral disturbance: with behavioral disturbance Qualified Code(s): G30.1 - Alzheimer's disease with late onset; F02.81 - Dementia in other diseases clas sified elsewhere with behavioral disturbance Altered mental status Qualifiers: Altered mental status type: delirium Qualified Code(s): R41.0 - Disorientation, unspecified Condition: Stable Disposition: HOME, SELF-CARE Instructions: Dementia ([facility]) Referrals: JOHNATHAN LEDESMA [employer] [employer] [Primary Care Provider] - Follow up in 3-5 days
[2020-10-04 13:37] VITALS: BP 151/83
== END 2020-10-04 14:15 | disposition home or self-care (01) ==
LOC: ER 10:24
DX: G30.1 Alzheimer's disease with late onset (principal); F02.81 Dementia in other diseases classified elsewhere, unspecified severity, with behavioral disturbance; R44.3 Hallucinations, unspecified; N20.0 Calculus of kidney; K44.9 Diaphragmatic hernia without obstruction or gangrene; N32.89 Other specified disorders of bladder; J98.11 Atelectasis; E78.00 Pure hypercholesterolemia, unspecified; E11.9 Type 2 diabetes mellitus without complications; Z79.82 Long term (current) use of aspirin; Z79.84 Long term (current) use of oral hypoglycemic drugs; Z79.899 Other long term (current) drug therapy
CPT/HCPCS: 36415; 70450; 74176; 80053; 81001; 82550; 84484; 85025; 93005; 93010; 99285